=== PATIENT | male | born 1960 | race Caucasian/White ===

== ENCOUNTER 2016-11-28 03:36 | Emergency (ER) | payer MEDICARE, OTHER ==
[2016-11-28] MEDS ORDERED: Albuterol/Ipratropium 3.0-0.5 MG/3 ML Neb Soln NEB ONE (03:37)
[2016-11-28] MEDS ORDERED: Albuterol 6.7 GM Inhaler INH ONE ×2 (03:37→05:08)
[2016-11-28] MEDS ORDERED: predniSONE 20 MG Tab PO ONE (03:37)
[2016-11-28] MEDS ORDERED: methylPREDNISolone Sodium Succinate 125 MG/2 ML SDV IVPUSH ONE (03:38)
[2016-11-28 03:41] VITALS: BP 135/91
[2016-11-28] MEDS ORDERED: Albuterol 0.083% 2.5 MG/3 ML Neb Soln NEB ONE (04:04)
--- NOTE | 2016-11-28 04:43 | EDM.PDOC ---
ED HPI GENERAL MEDICAL PROBLEM - General Chief Complaint: Respiratory Problem Stated Complaint: HARD TIME BREATHING Time Seen by Provider: 11/28/16 03:40 Source of Information: Reports: Patient History Limitations: Reports: No Limitations - History of Present Illness INITIAL COMMENTS - FREE TEXT/NARRATIVE: Patient reports increased wheezing since yesterday. Hx empysema, unable to locate inhaler. Last episode greater than 6 months prior. - Related Data Allergies Allergy/AdvReac Type Severity Reaction Status Date / Time meperidine HCl [From Demerol] Allergy Hives Verified 11/28/16 03:41 Home Meds: Home Meds Levothyroxine Sodium [Synthroid] 125 mcg PO DAILY 08/01/13 [History] Past Medical History Respiratory History: Reports: COPD Neurological History: Reports: Other (See Below) Other Neuro History: brain tumur Endocrine/Metabolic History: Reports: Hypothyroidism Social & Family History - Tobacco Use Smoking Status *Q: Never Smoker Second Hand Smoke Exposure: No - Alcohol Use Days Per Week of Alcohol Use: 0 - Recreational Drug Use Recreational Drug Use: Yes Drug Use in Last 12 Months: No ED ROS GENERAL - Review of Systems Review Of Systems: See Below Constitutional: Reports: No Symptoms HEENT: Reports: Eye Discharge Respiratory: Reports: Shortness of Breath, Wheezing, Sputum Cardiovascular: Reports: No Symptoms GI/Abdominal: Reports: No Symptoms Musculoskeletal: Reports: No Symptoms Skin: Reports: No Symptoms Neurological: Reports: No Symptoms ED EXAM, GENERAL - Physical Exam Exam: See Below Exam Limited By: No Limitations General Appearance: Alert, WD/WN, Moderate Distress, Thin Eye Exam: Bilateral Eye: EOMI Ears: Normal External Exam, Hearing Grossly Normal, Normal TMs Nose: Normal Inspection Throat/Mouth: Normal Inspection Head: Atraumatic, Normocephalic Neck: Normal Inspection Respiratory/Chest: Respiratory Distress, Decreased Breath Sounds, Wheezing Cardiovascular: Normal Peripheral Pulses, Regular Rate, Rhythm, No Edema GI/Abdominal: Normal Bowel Sounds, Soft Back Exam: Normal Inspection, Full Range of Motion Extremities: Normal Inspection Neurological: Alert, Oriented Psychiatric: Normal Affect Skin Exam: Warm, Dry, Intact, Normal Color Course - Vital Signs Last Recorded V/S: Last Vital Signs Temp 97.7 F 11/28/16 03:38 Pulse 103 H 11/28/16 03:38 Resp 20 11/28/16 03:38 BP 135/91 H 11/28/16 03:38 Pulse Ox 93 L 11/28/16 03:38 - Orders/Labs/Meds Orders: Active Orders 24 hr Category Date Time Status RT Aerosol Therapy [RC] ASDIRECTED Care 11/28/16 03:38 Active RT Aerosol Therapy [RC] ASDIRECTED Care 11/28/16 04:04 Active CXR [Chest 1V Frontal] [CR] Urgent Exams 11/28/16 03:39 Ordered INFLUENZA A+B AG SCREEN [RM] Stat Lab 11/28/16 03:43 Stop Req Labs: Laboratory Tests 11/28/16 11/28/16 11/28/16 Range/Units 03:46 03:46 03:46 WBC 9.4 (5.0-10.0) 10^3/uL RBC 5.06 (4.6-6.2) 10^6/uL Hgb 15.6 (14.0-18.0) g/dL Hct 45.4 (40.0-54.0) % MCV 89.7 (80-100) fL MCH 30.8 (27.0-34.0) pg MCHC 34.4 (33.0-35.0) g/dL Plt Count 150 (150-450) 10^3/uL Neut % (Auto) 77.7 H (42.2-75.2) % Lymph % (Auto) 10.4 L (20.5-50.1) % [place] % (Auto) 6.3 (2-8) % Eos % (Auto) 5.4 H (1.0-3.0) % Baso % (Auto) 0.2 (0.0-1.0) % Sodium 140 (135-145) mmol/L Potassium 3.9 (3.6-5.0) mmol/L Chloride 106 (101-111) mmol/L Carbon Dioxide 22.0 (21.0-31.0) mmol/L Anion Gap 15.9 BUN 16 (7-18) mg/dL Creatinine 1.4 H (0.6-1.3) mg/dL Est Cr Clr Drug Dosing 68.96 mL/min Estimated GFR (MDRD) 53 BUN/Creatinine Ratio 11.42 Glucose 107 H (74-105) mg/dL Calcium 9.1 (8.4-10.2) mg/dl Total Bilirubin 1.0 (0.2-1.0) mg/dL AST 25 (10-42) IU/L ALT 24 (10-60) IU/L Alkaline Phosphatase 68 (42-121) IU/L C-Reactive Protein 0.9 (0.0-1.3) mg/dL Total Protein 7.4 (6.7-8.2) g/dl Albumin 4.5 (3.2-5.5) g/dl Globulin 2.9 Albumin/Globulin Ratio 1.55 Meds: Medications Discontinued Medications Generic Name Dose Route Start Last Admin Trade Name Jimy PRN Reason Stop Dose Admin Albuterol 2.5 mg 11/28/16 04:04 11/28/16 04:06 Proventil Neb Soln NEB 11/28/16 04:05 2.5 mg ONETIME ONE Administration Albuterol Confirm 11/28/16 05:08 11/28/16 05:13 Proventil Hfa Administered 11/28/16 05:09 Not Given Dose 6.7 gm INH .STK-MED ONE Albuterol/Ipratropium 3 ml 11/28/16 03:37 11/28/16 03:42 Duoneb 3.0-0.5 Mg/3 Ml NEB 11/28/16 03:38 3 ml ONETIME ONE Administration Methylprednisolone Sodium Succinate 125 mg 11/28/16 03:38 11/28/16 03:50 Solu-Medrol IVPUSH 11/28/16 03:39 125 mg ONETIME ONE Administration Prednisone Confirm 11/28/16 05:08 11/28/16 05:13 Prednisone Administered 11/28/16 05:09 Not Given Dose 40 mg .ROUTE .STK-MED ONE - Radiology Interpretation Free Text/Narrative:: CXR clear - Re-Assessments/Exams Free Text/Narrative Re-Assessment/Exam: 11/28/16 04:37 verbalizes improvement. Breath sounds improved, continued diminished , wheezing present with deep inspiration and expiration. Sats 89-95% sinus tach 110-118. Departure - Departure Time of Disposition: 05:10 Disposition: Home, Self-Care 01 Condition: Fair Clinical Impression: Exacerbation of asthma - Discharge Information Instructions: Asthma, Adult Forms: ED Department Discharge Additional Instructions: albuterol inhaler 2 puffs every 4 hours as needed for wheezing, breathing difficulty prednisone 10mg 4 x1 day, 3x3 days, 2 x 3 days, 1 x 3 days then stop follow up if symptoms worsen or not improving increase fluid intake - My Orders Last 24 Hours: My Active Orders 11/28/16 03:38 RT Aerosol Therapy [RC] ASDIRECTED 11/28/16 03:39 CXR [Chest 1V Frontal] [CR] Urgent 11/28/16 03:43 INFLUENZA A+B AG SCREEN [RM] Stat 11/28/16 04:04 RT Aerosol Therapy [RC] ASDIRECTED - Assessment/Plan Last 24 Hours: My Active Orders 11/28/16 03:38 RT Aerosol Therapy [RC] ASDIRECTED 11/28/16 03:39 CXR [Chest 1V Frontal] [CR] Urgent 11/28/16 03:43 INFLUENZA A+B AG SCREEN [RM] Stat 11/28/16 04:04 RT Aerosol Therapy [RC] ASDIRECTED
[2016-11-28] MEDS ORDERED: predniSONE 20 MG Tab ONE (05:08)
== END 2016-11-28 05:16 | disposition home or self-care (01) ==
LOC: DL.ED 03:36
DX: J45.901 Unspecified asthma with (acute) exacerbation (principal); J44.9 Chronic obstructive pulmonary disease, unspecified; E03.9 Hypothyroidism, unspecified; Z88.8 Allergy status to other drugs, medicaments and biological substances
CPT/HCPCS: 36415; 71010; 80053; 85025; 86140; 94640; 96374; 99285; A9270; J2930; J7620; 99284